=== PATIENT | male | born 1950 | race Caucasian/White ===

== ENCOUNTER 2017-04-02 19:10 | Emergency (ER) | payer OTHER ==
[~2017-04-02] VITALS: Ht 188 cm; Wt 118.8 kg
[~2017-04-02 19:10] MED LIST: ASPIR-LOW81 MG PO; CELEXA40 MG PO; FLEXERIL10 MG PO; GLUCOPHAGE850 MG PO; LANTUS 10100 UNITS/ SC; LIPITOR20 MG PO; METOPROLOL TART25 MG PO; NEURONTIN600 MG PO; NITROSTAT0.4 MG SL; NOVOLOG PE100 UNITS/ SC; PLAVIX75 MG PO; SEROQUEL200 MG PO; SYNTHROID88 MCG PO; VOLTAREN50 MG PO; ZANTAC150 MG PO; ZESTRIL20 MG PO
[2017-04-02 20:14] LABS: HEMATOCRIT 41.7 % (38.0-50.0); MCH 30.3 PG (29.0-34.0); MCHC 34.5 G/DL (30.0-36.0); MCV 87.6 FL (86-99); MEAN PLAT.VOLUME 8.9 uM^3 (9.0-12.4); PLATELET COUNT 255 K/uL (156-360); RBC DIS.WIDTH-CV 13.2 % (11.8-14.6); RBC DIS.WIDTH-SD 42.7 % (39-53); RED BLOOD COUNT 4.76 M/uL (4.00-5.50); WHITE BLOOD COUNT 9.9 K/uL (4.1-10.2)
[2017-04-02 20:25] LABS: CHLORIDE 102 mEq/L (99-109); POTASSIUM 4.1 mEq/L (3.7-5.4); SODIUM 137 mEq/L (136-147)
[2017-04-02 20:27] LABS: GLUCOSE 171 mg/dL (70-99)
[2017-04-02 20:28] LABS: ANION GAP 16 MEQ/L (2-14)
[2017-04-02 20:31] LABS: GFR ESTIMATE (CALCULATED) 59 mL/min/
[2017-04-02 20:32] LABS: UREA NITROGEN (BUN) 13 mg/dL (9-23)
[2017-04-02 21:03] VITALS: BP 161/84
[2017-04-02 21:41] LABS: ADD MIUA? YES; BILIRUBIN NEGATIVE; BLOOD NEGATIVE; COLOR YELLOW ((YELLOW)); GLUCOSE (STRIP) NEGATIVE; KETONES 20; LEUKOCYTES NEGATIVE; NITRITE NEGATIVE; PROTEIN (STRIP) 100; SPECIFIC GRAVITY 1.016 (1.000-1.030); UROBILINOGEN 0.2 MG/DL (0.2-1.0)
[2017-04-02 21:48] LABS: BACTERIA NONE SEEN /HPF; EPITHELIAL CELLS NONE SEEN /HPF; MUCUS NONE SEEN /LPF; UCUL ADDED? NO; WHITE BLOOD CELLS 0-5 /HPF (0-5)
[2017-04-02] MEDS ORDERED: ZOFRAN4 MG PO (22:20)
[2017-04-02] MEDS ORDERED: FLOMAX0.4 MG PO (22:22)
[2017-04-02] MEDS ORDERED: PERCOCET 5/31 TABLET PO (22:22)
== END 2017-04-02 22:30 | disposition home or self-care (01) ==
LOC: EME 19:10
DX: N20.0 Calculus of kidney (principal); E11.9 Type 2 diabetes mellitus without complications; E78.5 Hyperlipidemia, unspecified; I10 Essential (primary) hypertension; E03.9 Hypothyroidism, unspecified; Z87.442 Personal history of urinary calculi; Z98.61 Coronary angioplasty status; Z79.4 Long term (current) use of insulin; Z79.02 Long term (current) use of antithrombotics/antiplatelets; Z79.84 Long term (current) use of oral hypoglycemic drugs; Z87.891 Personal history of nicotine dependence
CPT/HCPCS: 74176; 80048; 81003; 85027; 87086; 99281; 99284; J1885; J2270